=== PATIENT | female | born 1985 | race American Indian/Alaskan Native ===

== ENCOUNTER 2019-09-08 12:57 | Outpatient (CLI) | payer OTHER ==
[2019-09-08] MEDS ORDERED: LACTATED RINGERS 500 ML IV ONE (14:51)
[2019-09-08 15:41] LABS: Bilirubin,Urine NEG (Negative); Blood,Urine NEG (Negative); Color,Urine Yellow (Yellow); Mucus,Urine FEW /HPF; Protein,Urine <15 mg/dL mg/dL (Negative); WBC,Urine < 1.0 /HPF (0.0-6.0)
[2019-09-08 16:05] VITALS: BP 113/70
--- NOTE | 2019-09-08 17:34 | Ultrasound Report ---
OB ultrasound. 09/08/2019. HISTORY: No care. FINDINGS: OB ultrasound was performed. Imaging is limited. Estimated age is 23 weeks for twin A and 22 weeks 5 days for twin B. Estimated weight is 536 g for twin A (22nd percentile) and 517 g for twin B (15th percentile). No gross anomaly is identified. There was limited head and spine anatomical evaluation. Cervix is closed measuring 3.1 cm. IMPRESSION: Viable twin intrauterine gestations dated approximately 23 weeks. No anomaly identified a t this time. Signer Name: Chance Brownlee MD Signed: 09/08/2019 5:29 PM Workstation Name: [id number]
== END 2019-09-08 17:44 | disposition home or self-care (01) ==
LOC: TRG 12:57
PROVIDERS: ATTEND Obstetrics & Gynecology
DX: O47.02 False labor before 37 completed weeks of gestation, second trimester (principal); Z3A.23 23 weeks gestation of pregnancy
CPT/HCPCS: 59025; 76805; 76810; 81001